=== PATIENT | female | born 2005 | race Two or more races ===

== ENCOUNTER 2024-06-29 13:21 | Emergency (ER) | payer OTHER ==
[~2024-06-29] VITALS: Ht 167.6 cm; Wt 65.8 kg
[2024-06-29] MEDS ORDERED: CEFTRIAXONE SODIUM 1,000 MG VIAL IM ONE (15:15)
[2024-06-29] MEDS ORDERED: LIDOCAINE HCL 1% 10ML VIAL ONE (15:24)
[2024-06-29] MEDS ORDERED: CEFTRIAXONE SODIUM 1,000 MG VIAL ONE (15:24)
[2024-06-29 15:47] LABS: HEMATOCRIT 38.8 % (36.0-45.00); HEMOGLOBIN 13.2 g/dL (12.0-15.00); MEAN CELL VOLUME 87.7 fL (80.00-100.00); MEAN CORPUSCULAR HEMOGLOBIN 29.9 pg (27.00-32.0); MEAN CORPUSCULAR HGB CONC 34.1 g/dl (32.0-36.0); PLATELET COUNT 339 K/uL (150-450); RED BLOOD COUNT 4.42 M/uL (4.00-6.00); RED CELL DISTRIBUTION WIDTH 13.2 % (11.5-14.5)
[2024-06-29 16:37] LABS: ALBUMIN 3.7 gm/dL (3.4-5.0); ALKALINE PHOSPHATASE 86 U/L (50-136); ALT/SGPT 64 U/L (12-78); ANION GAP 5 (10.0-20.0); AST/SGOT 20 U/L (15-37); BILIRUBIN TOTAL 0.43 mg/dL (0.3-1.2); BLOOD UREA NITROGEN 10 mg/dL (7-18); BUN CREA RATIO 19 (7.0-25.0); CALCIUM 9.4 mg/dL (8.5-10.1); CARBON DIOXIDE 31 mEq/L (21-32); CHLORIDE 107 mmol/L (98-107); CREATININE SERUM 0.53 mg/dL (0.55-1.02); GFR 147.07; GLOBULINA 3.7 G/DL (2.4-3.5); GLUCOSE FASTING 92 mg/dL (65-100); OSMOLALITY SERUM 276 MOSM/KG (275-295); POTASSIUM 4.04 mEq/L (3.5-5.1); SODIUM 139 mmol/L (136-145); TOTAL PROTEIN 7.4 gm/dL (6.4-8.2)
[2024-06-29 16:38] LABS: C-REACTIVE PROTEIN < 0.29 MG/DL (0.00-0.29)
[2024-06-29 18:25] LABS: URINE APPEARANCE Clear; URINE BILIRRUBIN Negative (NEGATIVE); URINE BLOOD Negative; URINE EPITHELIAL CELLS 4.4 uL (0.0-38.8); URINE GLUCOSE Negative (NEGATIVE); URINE KETONE Negative (NEGATIVE); URINE LEUKOCYTE Trace; URINE NITRATE Negative; URINE PROTEIN Negative (NEGATIVE); URINE UROBILINOGEN 0.2 E.U./dl; URINE WBC 6.1 uL (0.0-23.2)
[2024-06-29 18:30] LABS: URINE BACTERIA 1.2 uL (0.0-1933); URINE RBC 1.4 uL (0.0-20.8)
[2024-06-29] MEDS ORDERED: ZOVIRAX400 MG PO (18:30)
[2024-06-29] MEDS ORDERED: DOXYCYCLINE HY100 M2 PO (18:30)
[2024-06-29] MEDS ORDERED: ZOVIRAX5 GM TOP (18:30)
== END 2024-06-29 19:37 | disposition home or self-care (01) ==
LOC: ER 13:22 → EMR PED 14:26
PROVIDERS: Emergency Medicine Pediatric Emergency Medicine
DX: B00.9 Herpesviral infection, unspecified (principal); Z91.013 Allergy to seafood